=== PATIENT | female | born 1950 | race Caucasian/White ===

== ENCOUNTER → 2017-02-12 | Outpatient (CLI) | payer OTHER, BC ==
[2017-02-12 15:39] LABS: BASO % 0.5 %; BASO ABS # 0.03 K/uL (0-0.2); COMPLETE YES; EOS % 1.3 %; HEMATOCRIT 41.1 % (37-47); IG% 0.3 %; LYMPH % 27.9 %; LYMPH ABS # 1.78 K/uL (1.2-3.4); MEAN CELL VOLUME 84.6 fL (80-100); MEAN CORPUSCULAR HEMOGLOBIN 28.8 pg (25-34); MEAN CORPUSCULAR HGB CONC 34.1 g/dl (32-36); MEAN PLATELET VOLUME 10.1 fL (7.4-10.4); PLATELET COUNT 250 K/uL (130-400); RED BLOOD COUNT 4.86 M/uL (4.2-5.4); WHITE BLOOD COUNT 6.39 K/uL (4.8-10.8)
[2017-02-12 16:13] LABS: ALT/SGPT 27 U/L (12-78); AST/SGOT 18 U/L (15-37); BLOOD UREA NITROGEN 11 mg/dl (7-18); BUN/CREATININE RATIO 8.8 (10-20); CARBON DIOXIDE 29 mmol/L (21-32); CHLORIDE 99 mmol/L (98-107); GLUCOSE 95 mg/dl (70-99); POTASSIUM 3.6 mmol/L (3.5-5.1); SODIUM 136 mmol/L (136-145)
[2017-02-12 16:20] LABS: ALB/GLOB RATIO 1.4 (0.9-2); ALKALINE PHOSPHATASE 107 U/L (45-117); CHOLESTEROL 207 mg/dl (0-200); CHOLESTEROL/HDL RATIO 2.8; FERRITIN 32.7 ng/ml (8.0-388.0); HDL CHOLESTEROL 74 mg/dl; LDL CHOLESTEROL CALCULATED 114 mg/dl; TRIGLYCERIDES 95 mg/dl (0-150); VERY LOW DENSITY LIPOPROT CALC 19 mg/dl
--- NOTE | 2017-02-18 07:11 | CODING QUERY MEDICAL NECESSITY ---
SUPPORTING DIAGNOSIS NEEDED Dr. Frias, A supporting diagnosis is required for the test/procedure performed on this patient in order for us to be reimbursed by the patient's insurance. Please provide a supporting diagnosis for the following test/procedure listed below next to the test name along with your signature. *If there is no additional diagnosis for this patient that would support the following test/procedure please document that below next to the test/procedure. Test(s)/Procedure(s) that require a supporting diagnosis: * ([id number]) VITAMIN D ASSAY DIAGNOSIS: * ([id number]) B12 VITAMIN LEVEL DIAGNOSIS: * ([id number]) FOLATE LEVEL DIAGNOSIS: DATE OF SERVICE: 02/12/17 Provider Signature: Date: Thank you Rebel Bertrand [facility] Information Management Once completed, please kindly fax back to [phone] For questions please call [phone]
== END | disposition home or self-care (01) ==
LOC: C.LAB1850 14:01
PROVIDERS: ATTEND Nurse Practitioner Family
DX: I10 Essential (primary) hypertension (principal); E78.00 Pure hypercholesterolemia, unspecified; R53.83 Other fatigue; R63.5 Abnormal weight gain

== ENCOUNTER → 2017-11-12 | Outpatient (CLI) | payer OTHER, BC | END | disposition home or self-care (01) | LOC: C.LABBC 13:20 | PROVIDERS: ATTEND Nurse Practitioner Family | DX: Z20.828 Contact with and (suspected) exposure to other viral communicable diseases (principal) ==

== ENCOUNTER → 2018-01-26 | Outpatient (CLI) | payer OTHER, BC ==
--- NOTE | 2018-01-26 12:27 | DIAGNOSTIC IMAGING REPORT ---
L FOOT MIN 3 VIEWS ROUTINE CLINICAL HISTORY: 67 years-old Female presenting with M79.672 Left foot pain [id number], redness, swelling over the first metatarsal. TECHNIQUE: Frontal, oblique, and lateral views of the left foot were obtained. COMPARISON: None. FINDINGS: Osteophytosis and subchondral sclerosis with minimal joint space loss at the first metatarsophalangeal joint. Mild surrounding soft tissue swelling along the medial aspect of the forefoot. No gross evidence of osseous erosion or periostitis. No acute fracture or malalignment. No other sites of significant degenerative change. Lack of fusion of the peroneus brevis apophysis noted, which may suggest prior apophysitis prominent enthesophyte at the origin of the plantar fascia. IMPRESSION: 1. Degenerative changes at the first metatarsophalangeal joint. 2. No acute osseous injury. 3. Soft tissue swelling along the medial forefoot, nonspecific. Correlate clinically to exclude cellulitis. No radiographic evidence of osteomyelitis. If there is clinical concern for this diagnosis, MR is more sensitive. Electronically signed by: Cheo Devi M.D. 01/26/2018 12:26 PM Dictated Date/Time: 01/26/2018 12:24 PM
[2018-01-26 13:30] LABS: BASO % 0.2 %; BASO ABS # 0.02 K/uL (0-0.2); EOS % 0.6 %; EOS ABS # 0.07 K/uL (0-0.5); HEMATOCRIT 42.5 % (37-47); HEMOGLOBIN 14.8 g/dL (12.0-16.0); IG# 0.03 K/uL (0.00-0.02); LYMPH % 15.1 %; LYMPH ABS # 1.76 K/uL (1.2-3.4); MEAN CELL VOLUME 83.3 fL (80-100); MEAN CORPUSCULAR HGB CONC 34.8 g/dl (32-36); MEAN PLATELET VOLUME 10.4 fL (7.4-10.4); MONO % 5.8 %; MONO ABS # 0.67 K/uL (0.11-0.59); PLATELET COUNT 261 K/uL (130-400); RED CELL DISTRIBUTION WIDTH CV 12.5 % (11.5-14.5); RED CELL DISTRIBUTION WIDTH SD 37.8 fL (36.4-46.3); WHITE BLOOD COUNT 11.65 K/uL (4.8-10.8)
[2018-01-26 14:15] LABS: ALBUMIN 4.1 gm/dl (3.4-5.0); ALT/SGPT 36 U/L (12-78); AST/SGOT 24 U/L (15-37); BLOOD UREA NITROGEN 18 mg/dl (7-18); CALCIUM 9.2 mg/dl (8.5-10.1); CARBON DIOXIDE 30 mmol/L (21-32); CREATININE 1.44 mg/dl (0.60-1.20); GLUCOSE 123 mg/dl (70-99); POTASSIUM 2.9 mmol/L (3.5-5.1); SODIUM 128 mmol/L (136-145); URIC ACID 9.1 mg/dl (2.6-7.2)
[2018-01-26 14:19] LABS: ALKALINE PHOSPHATASE 126 U/L (45-117); TOTAL PROTEIN 7.7 gm/dl (6.4-8.2)
== END | disposition home or self-care (01) ==
LOC: C.RADBC 11:11
PROVIDERS: ATTEND Nurse Practitioner Family
DX: M19.072 Primary osteoarthritis, left ankle and foot (principal); M79.672 Pain in left foot

== ENCOUNTER → 2018-02-16 | Outpatient (CLI) | payer OTHER, BC ==
[2018-02-16 14:13] LABS: ALBUMIN 3.8 gm/dl (3.4-5.0); BLOOD UREA NITROGEN 12 mg/dl (7-18); CARBON DIOXIDE 25 mmol/L (21-32); CHOLESTEROL 214 mg/dl (0-200); CREATININE 1.29 mg/dl (0.60-1.20); GLUCOSE 118 mg/dl (70-99); LDL CHOLESTEROL CALCULATED 119 mg/dl; PHOSPHORUS 3.3 mg/dl (2.5-4.9); POTASSIUM 4.2 mmol/L (3.5-5.1); SODIUM 139 mmol/L (136-145); URIC ACID 6.1 mg/dl (2.6-7.2)
== END | disposition home or self-care (01) ==
LOC: C.LABBC 10:09
PROVIDERS: ATTEND Nurse Practitioner Family
DX: M10.9 Gout, unspecified (principal); N28.9 Disorder of kidney and ureter, unspecified; E78.00 Pure hypercholesterolemia, unspecified

== ENCOUNTER → 2018-04-28 | Outpatient (CLI) | payer OTHER, BC ==
[2018-04-28 18:01] LABS: ALBUMIN 3.7 gm/dl (3.4-5.0); BLOOD UREA NITROGEN 9 mg/dl (7-18); CALCIUM 8.8 mg/dl (8.5-10.1); CARBON DIOXIDE 25 mmol/L (21-32); CREATININE 1.23 mg/dl (0.60-1.20); GLUCOSE 88 mg/dl (70-99); PHOSPHORUS 2.9 mg/dl (2.5-4.9); POTASSIUM 3.8 mmol/L (3.5-5.1); SODIUM 135 mmol/L (136-145)
== END | disposition home or self-care (01) ==
LOC: C.LAB 17:12
PROVIDERS: ATTEND Internal Medicine Nephrology
DX: N18.9 Chronic kidney disease, unspecified (principal)

== ENCOUNTER 2025-03-29 05:27 | Inpatient (IN) ==
--- NOTE | 2025-02-21 09:48 | PAT Medication Instructions ---
Medication Instructions Date of Service February 21, 2025 Home Medications Medication Instructions Recorded Valtrex 500 mg tablet 500 mg PO BID PRN Cold Sores #90 08/26/22 (valacyclovir) tabs betamethasone dipropionate 0.05 % 1 applic topical BID PRN skin 11/11/22 topical cream irritation #45 grams losartan 100 mg tablet 100 mg PO QAM #90 tabs 05/03/24 oxycodone-acetaminophen 5 mg-325 1 tab PO Q8H PRN pain #10 tabs 06/14/24 mg tablet aspirin 81 mg tablet,delayed 81 mg PO QAM #90 tabs 06/28/24 release (Enteric Coated Aspirin) nitroglycerin 0.4 mg sublingual 0.4 mg sublingual Q5M PRN chest 08/30/24 tablet pain #30 tabs atorvastatin 80 mg tablet 80 mg PO QAM #90 tabs 01/09/25 semaglutide (weight loss) 1.7 1.7 mg (0.75 mL) subcut Q7D #4 01/11/25 mg/0.75 mL subcutaneous pen syringes injector Valtrex 500 mg tablet (valacyclovir) 500 mg PO BID PRN Cold Sores betamethasone dipropionate 0.05 % topical cream 1 applic topical BID PRN skin irritation acetaminophen 500 mg tablet (Tylenol Extra Strength) 500 mg PO Q6H PRN prn cholecalciferol (vitamin D3) 50 mcg (2,000 unit) capsule 50 mcg PO QAM losartan 100 mg tablet 100 mg PO QAM oxycodone-acetaminophen 5 mg-325 mg tablet 1 tab PO Q8H PRN pain aspirin 81 mg tablet,delayed release (Enteric Coated Aspirin) 81 mg PO QAM nitroglycerin 0.4 mg sublingual tablet 0.4 mg sublingual Q5M PRN chest pain atorvastatin 80 mg tablet 80 mg PO QAM semaglutide (weight loss) 1.7 mg/0.75 mL subcutaneous pen injector 1.7 mg (0.75 mL) subcut Q7D amlodipine 5 mg tablet 5 mg PO QAM oxybutynin chloride 10 mg tablet,extended release 24 hr 10 mg PO QAM oxybutynin chloride 15 mg tablet,extended release 24 hr 15 mg PO QAM oxybutynin chloride 5 mg tablet,extended release 24 hr 15 mg PO DAILY pantoprazole 40 mg tablet,delayed release 40 mg PO QAM sertraline 100 mg tablet 150 mg PO QAM silver sulfadiazine 1 % topical cream 1 applic topical DAILY PRN prn Continue as directed Valtrex 500 mg tablet (valacyclovir) 500 mg PO BID PRN Cold Sores (if needed) nitroglycerin 0.4 mg sublingual tablet 0.4 mg sublingual Q5M PRN chest pain (if needed) ASK your surgeon for instructions silver sulfadiazine 1 % topical cream 1 applic topical DAILY PRN prn (if needed) ASK your prescriber and surgeon aspirin 81 mg tablet,delayed release (Enteric Coated Aspirin) 81 mg PO QAM STOP 7 days prior to surgery semaglutide (weight loss) 1.7 mg/0.75 mL subcutaneous pen injector 1.7 mg (0.75 mL) subcut Q7D STOP taking 24 hours before surgery betamethasone dipropionate 0.05 % topical cream 1 applic topical BID PRN skin irritation DO NOT take the morning of surgery cholecalciferol (vitamin D3) 50 mcg (2,000 unit) capsule 50 mcg PO QAM losartan 100 mg tablet 100 mg PO QAM oxybutynin chloride 10 mg tablet,extended release 24 hr 10 mg PO QAM oxybutynin chloride 15 mg tablet,extended release 24 hr 15 mg PO QAM oxybutynin chloride 5 mg tablet,extended release 24 hr 15 mg PO DAILY Take morning of surgery With a small sip of water, OTHERWISE NOTHING TO EAT OR DRINK AFTER MIDNIGHT: acetaminophen 500 mg tablet (Tylenol Extra Strength) 500 mg PO Q6H PRN prn (if needed) oxycodone-acetaminophen 5 mg-325 mg tablet 1 tab PO Q8H PRN pain (if needed) atorvastatin 80 mg tablet 80 mg PO QAM amlodipine 5 mg tablet 5 mg PO QAM pantoprazole 40 mg tablet,delayed release 40 mg PO QAM sertraline 100 mg tablet 150 mg PO QAM Take evening before surgery acetaminophen 500 mg tablet (Tylenol Extra Strength) 500 mg PO Q6H PRN prn (if needed) oxycodone-acetaminophen 5 mg-325 mg tablet 1 tab PO Q8H PRN pain (if needed) Other Notes If you have any questions please call us at [phone] or [phone] or [phone] or [phone]
--- NOTE | 2025-02-27 13:00 | Anesthesiology Consultation ---
Date of Service February 27, 2025 Assessment & Plan (1) Encounter for pre-operative examination: - Check BSG DOS - Infectious disease screening: Per assessment on 02/27/25- No known recent infectious disease contacts or current infectious disease symptoms. - Outpatient joint assessment: Pt currently scheduled for inpatient pathway. If surgeon requests review for outpatient joint pathway, patient is not recommended candidate for outpatient joint program from anesthesia standpoint based on available information. - GLP-1 medication instructions: Patient informed by PAT to stop 7 days prior to surgery- voiced understanding. Advised not to take after 03/22/25. - Cardiology note (01/29/25): "Left Total Hip arthroplasty.. Is patient medically optimized for surgery.. Yes" - Patient acceptable risk for surgery pending surgeon-ordered PCP ([facility], appt 03/15) and cardiology ([facility], appt 03/15) preop evaluations. Chart Review Chart Review: Patient seen in Pre Admission Testing Teaching & Discussion Pre-Anesthesia Teaching/Discussion Notes: Instructed NPO after midnight before surgery,except medications with 15 cc of water. Medication instructions provided according to the PAT guidelines. History Surgery Operation Date: 03/29/25 07:00 Proposed Procedures p Left Total Hip Arthroplasty - Babatunde Quintanilla MD Height/Weight Height: 5 ft 4.5 in Weight: 70 kg Allergies Allergy/AdvReac Type Severity Reaction Status Date / Time No Known Allergies Allergy Unknown Verified 02/16/25 14:52 Medications Home Medications Medication Instructions Recorded Confirmed Last Taken Valtrex 500 mg tablet 500 mg PO BID PRN Cold Sores #90 08/26/22 02/16/25 Unknown (valacyclovir) tabs betamethasone dipropionate 0.05 % 1 applic topical BID PRN skin 11/11/22 02/16/25 Unknown topical cream irritation #45 grams acetaminophen 500 mg tablet 500 mg PO Q6H PRN prn 03/27/23 02/16/25 Unknown (Tylenol Extra Strength) cholecalciferol (vitamin D3) 50 50 mcg PO QAM 03/27/23 02/16/25 Unknown mcg (2,000 unit) capsule losartan 100 mg tablet 100 mg PO QAM #90 tabs 05/03/24 02/16/25 Unknown oxycodone-acetaminophen 5 mg-325 1 tab PO Q8H PRN pain #10 tabs 06/14/24 02/16/25 Unknown mg tablet aspirin 81 mg tablet,delayed 81 mg PO QAM #90 tabs 06/28/24 02/16/25 Unknown release (Enteric Coated Aspirin) nitroglycerin 0.4 mg sublingual 0.4 mg sublingual Q5M PRN chest 08/30/24 02/16/25 Unknown tablet pain #30 tabs atorvastatin 80 mg tablet 80 mg PO QAM #90 tabs 01/09/25 02/16/25 Unknown semaglutide (weight loss) 1.7 1.7 mg (0.75 mL) subcut Q7D #4 01/11/25 02/16/25 Unknown mg/0.75 mL subcutaneous pen syringes injector amlodipine 5 mg tablet 5 mg PO QAM 02/16/25 02/16/25 Unknown oxybutynin chloride 10 mg 10 mg PO QAM 02/16/25 02/16/25 Unknown tablet,extended release 24 hr oxybutynin chloride 15 mg 15 mg PO QAM 02/16/25 02/16/25 Unknown tablet,extended release 24 hr oxybutynin chloride 5 mg 15 mg PO DAILY 02/16/25 02/16/25 Unknown tablet,extended release 24 hr pantoprazole 40 mg tablet,delayed 40 mg PO QAM 02/16/25 02/16/25 Unknown release sertraline 100 mg tablet 150 mg PO QAM 02/16/25 02/16/25 Unknown silver sulfadiazine 1 % topical 1 applic topical DAILY PRN prn 02/16/25 02/16/25 Unknown cream Past Medical History Medical History Arteriosclerosis of coronary artery bypass graft Arthritis CAD (coronary artery disease) Stent x1 (2017) Follows with [facility] CKD (chronic kidney disease) stage 3, GFR 30-59 ml/min Follows with Dr. 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 Sister Heart disease Cardiac disorder Daughter Sinusitis Allergic rhinitis Other No family history of adverse response to anesthesia Denies family history of History of complications due to general anesthesia Bleeding disorder Past Surgical History Surgical History H/O cataract removal with insertion of prosthetic lens R/L History of appendectomy History of cardiac cath 07/2018- 1 stent 2021- no stents History of carpal tunnel surgery of left wrist 06/2019 History of carpal tunnel surgery of right wrist 2018 History of cholecystectomy 1973 cholecystectomy- Difficulty placing IV; ended up placing IV "in the neck" > "did not come out well"; patient states this was what she was told and was not provided with further details. Patient states subsequent stacey berry/anesthesia without issue. History of colonoscopy History of tonsillectomy Presence of stent in LAD coronary artery 2017 Past Anesthesia History No Hx of Anesthesia Complications, No Family Hx of Anesthesia Complications and Other * 1973 cholecystectomy- Difficulty placing IV; ended up placing IV "in the neck" > "did not come out well"; patient states this was what she was told and was not provided with further details. Patient states subsequent surgery/anesthesia without issue. History of PONV No Hx of PONV and No Hx of Motion Sickness Social History Smoking Status: Former smoker Smoking cigarettes per day: "1 pack a year" Do You Dip or Chew Tobacco: No Smoking End Date: quit in college Hx Alcohol Use: Yes Alcohol type: wine alcohol intake frequency: a few times a month Hx Substance Use: No substance use type: does not use Review of Systems Patient denies chest pain, shortness of breath, dyspnea on exertion, fever, chills, cough, wheezing, palpitations. Physical Exam Vital Signs BP 131/82 P 76 TEMP 98.6 SP02 96%RA RESP 18 Physical Full cervical extension range of motion. Full TMJ range of motion. TMD 3 finger breaths Mallampati Score III Dentition: intact Lungs: clear throughout to auscultation Cardiac: regular rate and rhythm, no murmurs noted Spine: normal Carotid arteries: negative bruit Extremities: no LE edema Lab Results Anesthesia Preop Results Results Anesthesia Widget: WBC 8.26 K/ul (4.8-10.8) 02/27/25 Hgb 12.6 g/dl (12.0-16.0) 02/27/25 Hct 38.0 % (37.0-47.0) 02/27/25 Plt 221 K/uL (130-400) 02/27/25 Na 135 mmol/L (136-145) L 02/27/25 K 3.7 mmol/L (3.5-5.1) 02/27/25 Cl 103 mmol/L (98-107) 02/27/25 CO2 26 mmol/L (21-32) 02/27/25 BUN 14 mg/dl (6-23) 02/27/25 Creat 0.95 mg/dl (0.6-1.2) 02/27/25 Glucose Level 101 mg/dl (70-99(Fasting)) H 02/27/25 PT 10.5 Seconds (9.0-12.0) 02/27/25 PTT 26 Seconds (21-31) 02/27/25 INR 1.0 (0.9-1.1) 02/27/25 HA1c 5.6 % (4.5-5.6) 02/27/25 Urine Color Yellow 02/27/25 Urine Appearance Clear (Clear) 02/27/25 Urine pH 6.0 (4.5-7.5) 02/27/25 Urine Specific [place] 1.014 (1.000-1.030) 02/27/25 Urine Protein Negative (Negative) 02/27/25 Urine Glucose (UA) Negative (Negative) 02/27/25 Urine Ketones Trace (Negative) H 02/27/25 Urine Blood Negative (Negative) 02/27/25 Urine Nitrite Negative (Negative) 02/27/25 Urine Bilirubin Negative (Negative) 02/27/25 Urine Urobilinogen Negative (Negative) 02/27/25 Urine Leukocyte Esterase Negative (Negative) 02/27/25 Blood Type A Positive 02/27/25 Antibody Screen NEGATIVE 02/27/25 Testing Electrocardiogram Date: 02/27/25 NSR at 66bpm. "Normal ECG" Chest X-Ray Date: 02/27/25 FINDINGS: Heart size and pulmonary vasculature are normal. No effusion or consolidation. IMPRESSION: No acute findings. Stress Test Date: 02/18/22 Nondiagnostic exercise stress echo due to inability to achieve target heart rate. At peak exercise cannot rule out basal inferior, inferior lateral wall motion abnormality. No exercise-induced ST changes at 81% MPHR. 4.6 METS. EF 55 to 60%. Grade 2 diastolic dysfunction. Mild MR. Subsequent cardiac cath performed. Cardiac Catheterization Date: 03/10/22 Summary: Nonobstructive moderate (40 to 50%) ostial LAD stenosis just before prior stent (FFR 0.87)- Patent proximal LAD stent with 30% in-stent restenosis of proximal aspect. Normal intracardiac filling pressure. Recommendations: Continued ASCVD risk factor modification. Regular exercise without cardiac restrictions.
--- NOTE | 2025-03-29 05:30 | History & Physical Bridge Note ---
Date of Service March 29, 2025 History & Physical Bridge Note I have examined the patient, reviewed the History & Physical and in the interval since the performance of the History & Physical I have noted the following changes of clinical significance: consent and site verified.emphasized instability ,infection and length inequality as potential complications. no changes noted
[2025-03-29] MEDS: LR 60ML/HR IV SCH (06:07)
[2025-03-29] MEDS: LR 500ML BOLUS, THEN 15ML/HR IV SCH (06:07)
[2025-03-29] MEDS ORDERED: MIDAZOLAM HCL 1 MG/ML 2ML VIAL ONE (06:11)
[2025-03-29] MEDS ORDERED: LIDOCAINE 2% 2 ML VIAL/AMP(20MG/ML) INFIL ONE (06:11)
[2025-03-29] MEDS ORDERED: ONDANSETRON INJ 2 MG/ML 2 ML VIAL ONE (06:12)
[2025-03-29] MEDS ORDERED: PROPOFOL IV EMULSION 10 MG/ML 20 ML VIAL IV ONE (06:12)
[2025-03-29] MEDS ORDERED: BUPIVACAINE 0.5 % 5 MG/1 ML PF 10ML VIAL ONE (06:21)
[2025-03-29] MEDS: TRANEXAMIC ACID 1,000 MG **IV Pre-op IV SCH (06:38)
[2025-03-29] MEDS ORDERED: DROPERIDOL 5 MG/2 ML VIAL IV PRN (06:52)
[2025-03-29] MEDS ORDERED: ATROPINE SULFATE 0.1 MG/ML 10ML SYR IV PRN (06:52)
[2025-03-29] MEDS: ORTHO JOINT ANESTHETIC ONE (07:21)
[2025-03-29] MEDS ORDERED: ePHEDrine sulfate 50 MG/5 ML SYR ONE (07:24)
[2025-03-29] MEDS: ROPIV 0.5% 246mg, Ketorolac 30mg, EPINEPHrine 0.5mg in NSS INFIL SCH (08:02)
--- NOTE | 2025-03-29 08:07 | Post Operative Brief Note ---
Immediate Post Op Note Date of Surgery March 29, 2025 Pre & Post Diagnosis Operation Date: 03/29/25 07:00 <No data on this case meets the specified criteria> Osteoarthritis left hip pre and postop diagnosis I identified the patient and participated in the time-out.: Yes Procedure Operation Date: 03/29/25 07:00 <No data on this case meets the specified criteria> Noncemented left total placement Surgeon Babatunde Quintanilla MD Government Affairs Fellow Yakov/Homa Estimated Blood Loss 100 Findings Consistent with Post-Op Diagnosis Severe osteoarthritis large labral tear left hip Fluids 1000 cc Complications None
--- NOTE | 2025-03-29 08:11 | Orthopedic Progress Note ---
Date of Service March 29, 2025 Orthopedic Progress Note Patient underwent left total replacement noncemented. She tolerated well. Denies chest pain shortness of breath fever chills nausea vomiting headache. Vital signs are stable she is afebrile. Wound dressing clean dry and intact. X-ray pending and recovering. Daughter Fatuma contacted.
--- NOTE | 2025-03-29 08:11 | Operative Report ---
Post Operative Report Pre & Post Diagnosis Operation Date: 03/29/25 07:00 <No data on this case meets the specified criteria> Osteoarthritis left hip pre and postop diagnosis same I identified the patient and participated in the time-out.: Yes Procedure Operation Date: 03/29/25 07:00 <No data on this case meets the specified criteria> Noncemented left total replacement Surgeon Babatunde Quintanilla MD Mophead Trimmer And Wrapper Yakov/Homa Estimated Blood Loss 100 Findings Consistent with Post-Op Diagnosis Severe osteoarthritis large labral tear anteriorly Fluids 1000 cc Specimens Bone pathology Drains None Complications None Indications Severe pain failed conservative management markedly positive x-rays Description of Procedure After the patient was appropriate notified site verified consent verified antibiotics confirmed as being given markers were placed on the leg at the medial malleolar line bilaterally on the right patella. She was then placed in the right lateral decubitus position leg lengths checked noted to be relatively equal. She was then prepped and draped in routine fashion. Care was taken to pad all the appropriate sites including the armpit. Posterior approach the hip was then made sharp dissection carried through skin blunt dissection down to fascia this was incised under direct vision. Retractors then placed care taken to protect the sciatic nerve the hip was then flexed internally rotated the short external rotators released the capsule and open and teed and then the hip dislocated the femoral neck then was cut in the head removed. Acetabular exposure was good. Labrum was resected and was largely detached anteriorly serial reaming carried up to a 50 to 50 cup impacted into appropriate position with excellent fixation and secured with rotational screw was 6.5 x 25 mm with excellent purchase. Trial liner was then seated minimal osteophytes resected. Femur was then flexed internally rotated for therapy. Proximally with rongeur a wash box operator lateralizing rasp canal finder and serial broaching up to a size 4 which fit well. Trial reduction was carried out with a +5 head there was excellent stability in all planes excellent leg length. Hip was then dislocated all trial elements were then removed wound irrigated with Pulsavac Betadine in the hole resident inspector seated permanent liner seated permanent [place] head and stem seated the hip was reduced it was stable in all planes leg lengths were excellent wound was then closed with #2 Vicryl 2-0 Vicryl standstill clips appropriate dressing applied the patient transferred recovery in satisfactory condition he tolerated the procedure well. EBL was 100 cc or less crystalloid 1000 cc. Summary of implants INCIDE J&J implant 50 shell acetabular shell sector cup GRIPTION 25 x 6.5 screw 32 x 50 neutral liner 32+5 ceramic head 4 standard stem. DVT/PE prophylaxis to start tomorrow. Get up out of bed and move hip precautions standard protocol. Check x-ray to cover room. Daughter Fatuma contacted. I attest to the content of the Intraoperative Record and any orders documented therein. Any exceptions are noted below.
--- NOTE | 2025-03-29 08:12 | Discharge Summary ---
Date of Service March 30, 2025 Admission HPI Per Admitting Provider Admitted for left hip pain left total replacement Principal Diagnosis Osteoarthritis left hip Discharge Data Allergies Allergy/AdvReac Type Severity Reaction Status Date / Time No Known Allergies Allergy Unknown Verified 03/29/25 05:33 Vaccinations None Consultations None Procedures Performed Operation Date: 03/29/25 07:00 <No data on this case meets the specified criteria> Noncemented left total replacement Ordered Studies Bone pathology x-rays Hospital Course (1) History of left hip replacement: Plan Care pathway left total Total Time Total Time Spent Total Time Spent (In Minutes): 5 Discharge Plan Discharge Items Reason For Visit: Left Hip Osteoarthritis Follow-up/Referrals: Kvng Frias III, CRNP [Primary Care Provider] - Addtl Attending Provider Instructions: DIET: * Resume previous diet. MEDICATIONS: * Please take your prescriptions as instructed at your pre-op appointment and/or see medication discharge instructions listed above. * If concerns develop, call your physician's office at . SPECIAL CARE INSTRUCTIONS: * Ice/Elevate as instructed. * Keep dressing clean, dry, intact. * Your surgical extremity may be discolored due to prepping agents used on the skin. A bluish-green tint is a normal variant and should not cause alarm. Call your doctor at [phone] if: * Temperature above 101 degrees * Pain not relieved by pain medicine ordered * There is increased drainage or redness from any incision * You have any unanswered questions, problems or concerns. FOLLOW UP VISIT: * If not already scheduled, please call the office at to schedule a follow-up appointment. Stand-Alone Forms: My [facility] Medications and DC Order Prescriptions: No Action betamethasone dipropionate 0.05 % cream 1 applic TOP BID PRN (Reason: skin irritation) Qty: 45 1RF Rx Instructions: Apply to legs and arms as directed. losartan 100 mg tablet 100 mg PO QAM Qty: 90 3RF aspirin [Enteric Coated Aspirin] 81 mg tablet,delayed release (DR/EC) 81 mg PO QAM Qty: 90 3RF atorvastatin 80 mg tablet 80 mg PO QAM Qty: 90 3RF cholecalciferol (vitamin D3) 50 mcg (2,000 unit) capsule 50 mcg PO QAM acetaminophen [Tylenol Extra Strength] 500 mg tablet 500 mg PO Q6H PRN (Reason: prn) valacyclovir [Valtrex] 500 mg tablet 500 mg PO BID PRN (Reason: Cold Sores) Qty: 90 1RF Rx Instructions: Brand Nescessary nitroglycerin 0.4 mg tablet, sublingual 0.4 mg sublingual Q5M PRN (Reason: chest pain) Qty: 30 3RF Rx Instructions: do not exceed 3 doses per episode oxycodone-acetaminophen 5-325 mg tablet 1 tab PO Q8H PRN (Reason: pain) Qty: 10 0RF oxybutynin chloride 10 mg tablet extended release 24hr 10 mg PO QAM Rx Instructions: Take with 15 mg tablet to total 25mg amlodipine 5 mg tablet 5 mg PO QAM pantoprazole 40 mg tablet,delayed release (DR/EC) 40 mg PO QAM silver sulfadiazine 1 % cream 1 applic topical DAILY PRN (Reason: prn) Rx Instructions: apply a 1.5 mm thickness sertraline 100 mg tablet 150 mg PO QAM oxybutynin chloride 15 mg tablet extended release 24hr 15 mg PO QAM Rx Instructions: TAKE 1 TABLET BY MOUTH EVERY MORNING. Take with 10mg to total 25mg daily. Admission Data Admit Date/Time: 03/29/25 08:28 Attending Provider: Babatunde Quintanilla Admit Provider: Babatunde Quintanilla Primary Care Provider: Kvng Frias III Other Providers: [facility]
--- NOTE | 2025-03-29 08:23 | Operative Report ---
Post Operative Report Pre & Post Diagnosis Operation Date: 03/29/25 07:00 Pre-Op Diagnosis: Left Hip Degenerative Joint Disease Post-Op Diagnosis: Left Hip Degenerative Joint Disease I identified the patient and participated in the time-out.: Yes Procedure Operation Date: 03/29/25 07:00 Actual Procedures p Left Total Hip Arthroplasty, Uncemented(Left) - Babatunde Quintanilla MD Surgeon Babatunde Quintanilla MD Certified Veterinary Technician Yakov/Homa Estimated Blood Loss 100 Findings Consistent with Post-Op Diagnosis Specimens Left femoral head Description of Procedure Patient was brought to the operative suite where she underwent anesthesia. She was placed in right lateral decubitus position. Left lower extremity was prepped and draped in the usual sterile fashion. Surgical timeout was performed. Patient underwent a left total hip arthroplasty. Please Dr. Quintanilla's operative report for full details. I was present and assist with limb positioning, soft tissue retraction, hemostasis, hardware implantation, wound closure, postoperative dressing placement. Patient was taken to the recovery room in stable condition. I attest to the content of the Intraoperative Record and any orders documented therein. Any exceptions are noted below.
--- NOTE | 2025-03-29 08:31 | Operative Report ---
Post Operative Report Pre & Post Diagnosis Operation Date: 03/29/25 07:00 Pre-Op Diagnosis: Left Hip Degenerative Joint Disease Post-Op Diagnosis: Left Hip Degenerative Joint Disease I identified the patient and participated in the time-out.: Yes Procedure Operation Date: 03/29/25 07:00 Actual Procedures p Left Total Hip Arthroplasty, Uncemented(Left) - Babatunde Quintanilla MD Surgeon JHOANA Quintanilla MD Staff Radiologist Yakov/Homa MELCHOR Estimated Blood Loss 100 Findings Consistent with Post-Op Diagnosis see operative report Specimens see operative report Drains none Complications none Disposition Accompanied Patient To Recovery: Yes Indications This 74-year-old female presented to the office with complaints of persisting left hip pain. She had tried conservative care measures, including activity modification and OTC medications, without improvement. She elected to proceed with surgical intervention after being educated about potential risks and outcomes. Preoperative imaging was obtained. Description of Procedure The patient was administered a spinal anesthetic and then taken to the operating room where she was given sedation. She was prepped and draped in the usual sterile fashion. Please see Dr. Quintanilla's operative report for specifics of the procedure. I was present for the entire case from initial patient positioning through final wound closure. Assistance was provided in tissue retraction, hemostasis, trial implant placement, final implant placement, and final wound closure. The patient was taken to the recovery room in satisfactory condition. I attest to the content of the Intraoperative Record and any orders documented therein. Any exceptions are noted below.
--- NOTE | 2025-03-29 08:50 | XRay Report ---
XR pelvis 1-2V routine CLINICAL HISTORY: S/P L HIRAL COMPARISON: 01/12/2025 FINDINGS: Left hip prosthesis shows no hardware complication. There is expected soft tissue gas. Ski n rickey are present. Stable moderate degenerative changes right hip. IMPRESSION: Unremarkable postoperative exam. ACT 112: Negative or not required by law. Electronically signed by: Jonathan Fuentes M.D. 03/29/2025 8:49 AM
--- NOTE | 2025-03-29 09:23 | Anesthesiology Progress Note ---
Date of Service March 29, 2025 Anesthesia Post Procedure Vital Signs Vital Signs: Temp Pulse Pulse Resp BP Pulse Ox O2 Del Method 03/29/25 09:15 60 16 127/65 93 Room Air 03/29/25 09:00 61 14 134/68 98 Room Air 03/29/25 08:45 36.4 C L 60 14 143/67 H 99 Room Air 03/29/25 08:35 60 16 146/71 H 100 Room Air 03/29/25 08:25 65 14 136/60 99 Oxymask 03/29/25 08:18 36.2 C L 82 12 142/70 H 100 Oxymask 03/29/25 05:47 36.7 C 83 20 165/86 H 96 Room Air O2 Flow Rate 03/29/25 09:15 03/29/25 09:00 03/29/25 08:45 03/29/25 08:35 03/29/25 08:25 4 03/29/25 08:18 6 03/29/25 05:47 Notes Mental Status: alert / awake / arousable Patient Amnestic to Procedure: Yes Nausea / Vomiting: adequately controlled Pain: adequately controlled Airway Patency, RR, SpO2: stable & adequate BP & HR: stable & adequate Hydration State: stable & adequate Neuraxial Anesthesia: was administered and sensory block is resolving Anesthetic Complications: no major complications apparent
[2025-03-29] MEDS ORDERED: NITROGLYCERIN SL 0.4 MG/TAB TAB SL PRN (09:40)
[2025-03-29] MEDS ORDERED: METOCLOPRAMIDE HCL INJ 5 MG/ML 2 ML VIAL IV PRN (09:40)
[2025-03-29] MEDS ORDERED: diphenhydrAMINE 50 MG/ML VIAL IV PRN (09:40)
[2025-03-29] MEDS ORDERED: HYDROmorphone INJ 0.5 MG/0.5 ML SYR IV PRN (09:40)
[2025-03-29] MEDS ORDERED: ALUMINUM/MAGNESIUM SUSP 30 ML UDC PO PRN (09:40)
[2025-03-29] MEDS ORDERED: ONDANSETRON INJ 2 MG/ML 2 ML VIAL IV PRN (09:40)
[2025-03-29] MEDS ORDERED: OXYBUTYNIN CHLORIDE XL 5 MG TABCR PO SCH (09:40)
[2025-03-29] MEDS ORDERED: NALOXONE HCL 0.4 MG/1 ML VIAL/CARP IV PRN (09:40)
[2025-03-29] MEDS ORDERED: MAGNESIUM HYDROXIDE SUSP 30 ML UDC PO PRN (09:40)
[2025-03-29] MEDS: ASPIRIN 81 MG ECTAB PO SCH (11:00)
[2025-03-29] MEDS: LOSARTAN POTASSIUM 50 MG TAB PO SCH (11:01)
[2025-03-29] MEDS: SERTRALINE HCL 50 MG TABLET PO SCH (11:01)
[2025-03-29] MEDS: ATORVASTATIN 40 MG TAB PO SCH (11:01)
[2025-03-29] MEDS: OXYBUTYNIN CHLORIDE XL 5 MG TABCR PO SCH (11:02)
[2025-03-29] MEDS: MULTIVITAMIN TAB PO SCH (11:02)
[2025-03-29] MEDS: DOCUSATE SODIUM 100 MG CAP PO SCH (11:14)
[2025-03-29] MEDS: KETOROLAC TROMETHAMINE 15 MG/ML VIAL IV SCH (11:14)
[2025-03-29] MEDS: SODIUM CHLORIDE 0.9% 1,000 ML IV SCH (11:16)
--- NOTE | 2025-03-29 13:26 | Orthopedic Progress Note ---
Date of Service March 29, 2025 Assessment & Plan Admission and Anticipated Discharge Date Admission Date: March 29, 2025 Orthopedic Progress Note Afternoon postop check doing well. Has normal neurologic function femoral sciatic nerve. Hip is located wound dressing clean dry and intact. Needs to get up and start moving around. Needs to get up to void. Try to encourage her to can be more active. Saline lock IV.
[2025-03-29] MEDS: ACETAMINOPHEN 500 MG TAB PO SCH (14:08)
[2025-03-29 15:45] VITALS: RESP 16
[2025-03-29] MEDS: ASCORBIC ACID 500 MG TAB PO SCH (16:28)
[2025-03-29] MEDS: FERROUS GLUCONATE 324 MG TAB PO SCH (16:28)
[2025-03-29 20:07] VITALS: TEMP 98.6
[2025-03-29] MEDS: SENNA 8.6 MG TAB PO SCH (20:23)
[2025-03-30 06:01] LABS: Hematocrit (blood only) 24.9 % (37.0-47.0); Hemoglobin 8.3 g/dl (12.0-16.0); Immature Granulocytes # (auto) 0.04 K/uL (0.01-0.20); Immature Granulocytes % (auto) 0.4 %; Mean Corpuscular Hemoglobin 28.6 pg (25.0-34.0); Mean Corpuscular Volume 85.9 fL (80.0-100.0); Platelet Count 152 K/uL (130-400); RDW Standard Deviation 40.6 fL (36.4-46.3); Red Blood Count 2.90 M/uL (4.20-5.40); White Blood Count 9.16 K/ul (4.8-10.8)
[2025-03-30 06:21] LABS: Anion Gap 5.0 (3-11); Blood Urea Nitrogen 18.0 mg/dl (6-23); Calcium 8.1 mg/dl (8.6-10.3); Carbon Dioxide 26.0 mmol/L (21-32); Chloride 102.0 mmol/L (98-107); Creatinine Clr Calc Pharmacy 40.8 ml/min; Glucose 128.0 mg/dl (70-99(Fasting)); Potassium 4.2 mmol/L (3.5-5.1); Sodium 133.0 mmol/L (136-145)
--- NOTE | 2025-03-30 07:13 | Orthopedic Progress Note ---
Date of Service March 30, 2025 Assessment & Plan Admission and Anticipated Discharge Date Admission Date: March 29, 2025 Orthopedic Progress Note Postop day #1 status post left total replacement. Patient is resting comfortably in bed. Denies chest pain shortness of breath fever chills nausea vomiting or headache. Notes she gets a little feeling warm and little bit queasy when she is on her feet. Her diastolic blood pressure is in the 60s when she stands. None Vital signs are stable. Neurovascular check femoral sciatic nerve is normal. Wound dressing is changed. There is no drainage is completely dry. There is no swelling or hematoma. Morning hematocrit is 25. She did not lose much blood during surgery. Is more more likely hemodilution. Assessment status post total hip replacement left. At this point time continue with care pathway. Have her do PT OT. Will hold blood pressure medication to prevent overtreatment. Will discontinue her Dilaudid to prevent lowering blood pressure from that. Suggest Tylenol 8 hours 1000 mg and as needed narcotic orally. Initiate anticoagulation today. Finalize potential transfer to [facility] per case management.
[2025-03-30 07:33] VITALS: O2SAT 95
[2025-03-30] MEDS: APIXABAN 2.5 MG TAB PO SCH (07:35)
[2025-03-30] MEDS: dexAMETHasone 10 MG in SYRINGE 0 ML IV SCH (07:37)
[2025-03-30 10:12] VITALS: BP 106/69
[2025-03-30 11:04] VITALS: PULSE 76
== END 2025-03-30 13:23 | DRG 470 ==
LOC: ASU 05:27 → 3E 08:28